=== PATIENT | female | born 1970 | race American Indian/Alaskan Native ===

== ENCOUNTER 2018-08-28 08:42 | Outpatient (CLI) | payer OTHER ==
--- NOTE | 2018-08-28 09:16 | XRay Report ---
BILATERAL KNEES, 2 VIEWS History: Pain, disability exam. Findings: No comparison. Bone mineralization is within normal limits. Mild retropatellar spurring is identified in both knees. The medial and lateral compartments of both knees are within normal limits. There is no evidence for acute injury, bone lesion or large joint effusion. Impression: Minimal osteoarthritis as described.
== END 2018-08-28 08:43 | disposition home or self-care (01) ==
LOC: XRAY 08:42
PROVIDERS: ATTEND Internal Medicine
DX: Z02.71 Encounter for disability determination (principal); M17.0 Bilateral primary osteoarthritis of knee; Z88.6 Allergy status to analgesic agent

== ENCOUNTER 2020-02-03 08:50 | Outpatient (CLI) | payer MEDICARE ==
--- NOTE | 2020-02-03 12:11 | Mammography Report ---
DIGITAL SCREENING MAMMOGRAM WITH CAD, 02/03/2020 INDICATION: Routine screening mammography. TECHNIQUE: Digital bilateral 2D mammography was obtained in the craniocaudal and mediolateral obliq ue projections. This examination was interpreted with the benefit of Computer-Aided Detection analysi s. COMPARISON: None FINDINGS: Breast Density: The breasts are almost entirely fatty. There is no evidence of dominant mass, suspicious calcifications or architectural distortion in eithe r breast. IMPRESSION: No evidence of malignancy. Follow up recommendation: Routine yearly BI-RADS Category 1: Negative. A "normal" or negative report should not discourage follow up or biopsy of a clinically significant f inding. A written summary of these findings will be mailed to the patient. The patient will be entered into a mammography reporting system which will generate a reminder letter for the patient's next appointmen t at the appropriate interval. The [employer] recommends yearly mammograms starting at age 40 and continuing as l ronen as a woman is in good health. Breast MRI is recommended for women with an approximate 20-25% or greater lifetime risk of breast cancer, including women with a strong family history of breast or ova bryon cancer or who have been treated for Hodgkin's disease. Signer Name: Jenifer Ayala MD Signed: 02/03/2020 12:06 PM Workstation Name: [id number]
== END 2020-02-03 08:51 | disposition home or self-care (01) ==
LOC: MAMMO 08:50
PROVIDERS: ATTEND Internal Medicine
DX: Z12.31 Encounter for screening mammogram for malignant neoplasm of breast (principal)
CPT/HCPCS: 77067

== ENCOUNTER 2020-02-18 05:44 | Day surgery (SDC) | payer MEDICARE ==
[2020-02-18] MEDS ORDERED: MIDAZOLAM 2 MG/2 ML INJ IV NR (06:00)
[2020-02-18] MEDS ORDERED: LACTATED RINGERS 1,000 ML IV SCH (06:00)
[2020-02-18] MEDS ORDERED: BACTERIOSTATIC SODIUM CHLORIDE 0.9% 30 ML VIAL INFILTRATI ONE (06:30)
[2020-02-18] MEDS ORDERED: LIDOCAINE (1%) 10 MG/1 ML VIAL 20 ML MDV ONE (07:11)
[2020-02-18] MEDS ORDERED: BUPIVACAINE/PF (0.5%) 5 MG/1 ML 30 ML VIAL INFILTRATI ONE ×3 (07:11→07:57)
[2020-02-18] MEDS ORDERED: DEXMEDETOMIDINE 200 MCG/2 ML VIAL IV ONE (07:20)
[2020-02-18] MEDS ORDERED: GLYCOPYRROLATE 0.4 MG/2 ML INJ ONE (07:23)
[2020-02-18] MEDS ORDERED: KETAMINE/STERILE WATER 50 MG/ML SYRINGE ONE (07:24)
[2020-02-18] MEDS ORDERED: fentaNYL 100 MCG/2 ML INJ IV PRN (07:30)
[2020-02-18] MEDS ORDERED: ONDANSETRON 4 MG/2 ML INJ IV PRN (07:30)
--- NOTE | 2020-02-18 07:30 | Anesthesia Day of Surgery ---
Anesthesia Day of Surgery - Day of Surgery Patient Examined: Yes Patient H&P Reviewed: Yes Patient is NPO: Yes
--- NOTE | 2020-02-18 07:30 | Anesthesia Consultation ---
Anesthesia Consult and Med Hx Date of service: 02/18/20 - Airway Anesthetic Teeth Evaluation: Good ROM Head & Neck: Adequate Mental/Hyoid Distance: Adequate Mallampati Class: Class III Intubation Access Assessment: Possibly Difficult - Pulmonary Exam CTA: Yes - Cardiac Exam Cardiac Exam: RRR - Pre-Operative Health Status ASA Pre-Surgery Classification: ASA3 Proposed Anesthetic Plan: MAC - Pulmonary Hx Smoking: No Hx Respiratory Symptoms: No Hx Sleep Apnea: No (DAYANA PRE SCREEN HIGH RISK) - Cardiovascular System Hx Hypertension: Yes (took antihypertensives this morning) Hx Heart Attack/AMI: No Hx Percutaneous Transluminal Coronary Angioplasty (PTCA): No - Central Nervous System CVA: No Hx Back Pain: Yes (WITH LEFT LEG PAIN) Hx Psychiatric Problems: No - Gastrointestinal Hx Gastroesophageal Reflux Disease: No - Endocrine Hx Renal Disease: No Hx Liver Disease: No Hx Insulin Dependent Diabetes: No Hx Non-Insulin Dependent Diabetes: No Hx Thyroid Disease: No - Other Systems Hx Obesity: Yes (BMI 54) - Additional Comments Anesthesia Medical History Comments: No hx anesthetic complications.
[2020-02-18] MEDS ORDERED: LIDOCAINE (1%) 10 MG/1 ML VIAL 20 ML MDV INFILTRATI ONE ×2 (07:57)
[2020-02-18] MEDS ORDERED: SODIUM CHLORIDE 0.9% IRR 1,000 ML BOTTLE IR ONE (07:58)
[2020-02-18] MEDS ORDERED: ONDANSETRON 4 MG/2 ML INJ ONE (08:26)
--- NOTE | 2020-02-18 08:49 | Short Stay Summary ---
Short Stay Documentation Date of service: 02/18/20 - History Principal diagnosis: soft tissue mass of right buttock H&P: obtained from office - Allergies and Medications Current Medications: Allergies No Known Allergies Allergy (Verified 02/13/20 15:42) Home Medications Medication Instructions Recorded Confirmed Last Taken Type Naproxen [Naprosyn] 500 mg PO PRN PRN 02/13/20 02/18/20 02/04/20 History amLODIPine [Norvasc] 10 mg PO DAILY 02/13/20 02/13/20 02/18/20 05:00 History lisinopriL [Zestril TAB] 10 mg PO QDAY 02/13/20 02/13/20 02/18/20 05:00 History Active Medications Fentanyl (Sublimaze) 50 mcg IV Q5MIN PRN PRN Reason: Pain , Severe (7-10) Stop: 02/18/20 23:00 Lactated Ringer's (Lactated Ringers) 1,000 mls @ 100 mls/hr IV DIRECT NENA Stop: 02/18/20 23:59 Last Admin: 02/18/20 07:13 Dose: 100 mls/hr Documented by: Midazolam HCl (Versed) 2 mg IV PREOP NR Stop: 02/18/20 23:59 Last Admin: 02/18/20 07:18 Dose: 2 mg Documented by: Ondansetron HCl (Zofran) 4 mg IV ONCE PRN PRN Reason: Nausea And Vomiting Stop: 02/18/20 20:00 - Brief post op/procedure progress note Date of procedure: 02/18/20 Pre-op diagnosis: right buttock soft tissue mass Post-op diagnosis: same Procedure: excision soft tissue mass right buttock Anesthesia: MAC, local Findings: 10cm lobulated fatty mass of right buttock Surgeon: ARRON TIPTON Estimated blood loss: minimal Pathology: list (soft tissue mass right buttock) Specimen disposition: to lab Condition: stable - Hospital course Hospital course: Pt observed in PACU and discharged to home in stable condition - Disposition Condition at discharge: Good Disposition: DC-01 TO HOME OR SELFCARE Short Stay Discharge Plan Activity: no restrictions Diet: regular Wound: open to air, other (May remove outer dressing in 2 days and then leave incision open to air.) Additional Instructions: May shower in 2 days, pat incision dry, do not scrub. Follow up with: CAMILO MULLINS MD [Primary Care Provider] - 7 Days ARRON TIPTON DO [Staff Physician] - 14 Days Prescriptions: HYDROcodone/APAP 5-325 [[employer] 5/325] 1 each PO Q4HR PRN #15 tablet PRN Reason: Pain , Severe (7-10)
[2020-02-18 10:24] VITALS: BP 100/61
--- NOTE | 2020-02-18 10:43 | Post Anesthesia Evaluation ---
- Post Anesthesia Evaluation Patient Participated: Yes Airway Patent: Yes Stable Respiratory Function: Yes Nausea/Vomiting: No Temp > 96.8F: Yes Pain Manageable: Yes Adequeate Hydration: Yes Anesthesia Complications: No Other Comments: Initial hypotension likely related to sedation. Improved with IVF bolus. Patient awake, alert, asymptomatic at time of d/c.
--- NOTE | 2020-02-18 11:45 | Operative Report ---
Operative Report Operative Report: Date of procedure: 02/18/20 Pre-op diagnosis: right buttock soft tissue mass Post-op diagnosis: same Procedure: excision soft tissue mass right buttock Anesthesia: MAC, local Findings: 10cm lobulated fatty mass of right buttock Surgeon: ARRON TIPTON Estimated blood loss: minimal Pathology: list (soft tissue mass right buttock) Specimen disposition: to lab Condition: stable - Hospital course Hospital course: Pt observed in PACU and discharged to home in stable condition HPI and indication: 49 yo F with large right buttock soft tissue mass who presented to surgery clinic to be evaluated for removal. All risks, benefits, alternatives to surgery were discussed with the patient and questions answered. Consent obtained. Procedure in detail: The patient was identified in the preoperative area, brought to the OR and placed on the OR table in right lateral decubitus position. All bony prominences were padded appropriately. The right buttock was prepped and draped in sterile fashion and time out performed. Local anesthetic was infiltrated into the skin and subcutaneous tissue at the intended incision site. An elliptical incision was made over the soft tissue mass using 15 blade. Dissection was then carried down through the skin and subcutaneous tissue using electrocautery. The mass was encountered and circumfrentially dissected free from the surrounding tissue and capsule using hemostat and electrocautery. The mass was multilobulated, fatty, consistent with lipoma. Once the mass was completely dissected, it was removed from the wound en bloc. The mass was measured at 10cm. A long stitch was placed at the lateral margin and short stitch at the superior margin. The wound was irrigated and checked for hemostasis. Hemostasis was achieved using pressure and electrocautery. Darion powder was sprayed into the wound. No bleeding was seen. The wound was then closed in a layered fashion. The deep layer was closed using interrupted 3-0 vicryl stitches. The skin was approximated using 4-0 monocryl subcuticular running stitch and skin glue. Once the glue was dry, a 4x4 gauze and medipore tape was applied to the area. At the end of the case, all sponge, instrument, sharp counts were correct x2. The patient was awoken from anesthesia and taken to PACU in stable condition.
== END 2020-02-18 05:45 | disposition home or self-care (01) ==
LOC: OR 05:44
PROVIDERS: ATTEND Surgery
DX: M79.89 Other specified soft tissue disorders (principal); Z20.828 Contact with and (suspected) exposure to other viral communicable diseases; D17.1 Benign lipomatous neoplasm of skin and subcutaneous tissue of trunk; I10 Essential (primary) hypertension; E66.9 Obesity, unspecified; M19.90 Unspecified osteoarthritis, unspecified site; Z79.899 Other long term (current) drug therapy; Z90.710 Acquired absence of both cervix and uterus; Z98.890 Other specified postprocedural states; Z68.43 Body mass index [BMI] 50.0-59.9, adult
CPT/HCPCS: 21931; 88307; J0690; J2250; J2405; J3490; J7120; U0003

== ENCOUNTER 2020-05-12 12:27 | Outpatient (CLI) | payer MEDICARE ==
[2020-05-12 13:03] LABS: Basophils % (Auto) 0.7 % (0.0-1.8); Eosinophils # (Auto) 0.1 K/mm3 (0.0-0.4); Eosinophils % (Auto) 1.9 % (0.0-4.3); Hematocrit 39.1 % (30.3-42.9); Hemoglobin 13.1 gm/dl (10.1-14.3); Lymphocytes # (Auto) 2.5 K/mm3 (1.2-5.4); Lymphocytes % (Auto) 36.4 % (13.4-35.0); Mean Corpuscular HGB Conc 34 % (30-34); Mean Corpuscular Volume 93 fl (79-97); Monocytes # (Auto) 0.4 K/mm3 (0.0-0.8); Monocytes % (Auto) 5.8 % (0.0-7.3); Platelet Count 370 K/mm3 (140-440); Red Blood Count 4.21 M/mm3 (3.65-5.03); Red Cell Distribution Width 14.1 % (13.2-15.2)
[2020-05-12 13:19] LABS: % Iron Saturation 24.21 %; Alanine Aminotransferase 11 units/L (7-56); Albumin 4.1 g/dL (3.9-5); Blood Urea Nitrogen 7 mg/dL (7-17); Calcium 10.4 mg/dL (8.4-10.2); Chol/HDL Ratio 4.23 %; HDL Cholesterol 46 mg/dL (40-59); Hemolysis Index 4; Iron 77 ug/dL (37-170); LDL Cholesterol,Direct 136 mg/dL (50-130); Total Iron Binding Capacity 318 mcg/dL (250-450)
[2020-05-12 13:24] LABS: BUN/Creatinine Ratio 10
== END 2020-05-12 12:28 | disposition home or self-care (01) ==
LOC: LAB 12:27
PROVIDERS: ATTEND Internal Medicine
DX: E66.01 Morbid (severe) obesity due to excess calories (principal); K30 Functional dyspepsia; E11.9 Type 2 diabetes mellitus without complications
CPT/HCPCS: 36415; 80053; 80061; 82306; 82607; 82728; 83036; 83550; 84443; 85025